=== PATIENT | male | born 1945 | race Caucasian/White ===

== ENCOUNTER → 2023-08-30 07:39 | Outpatient (REF) | payer MEDICARE, OTHER, SELFPAY | LOC: RAD 07:39 | PROVIDERS: ATTENDING PHYSICIAN Nurse Practitioner Family; FAMILY PHYSICIAN Family Medicine | DX: R06.02 Shortness of breath (principal); Z86.711 Personal history of pulmonary embolism | CPT/HCPCS: 71275; Q9967 ==

== ENCOUNTER → 2023-10-12 09:59 | Outpatient (REF) | payer MEDICARE, OTHER, SELFPAY | LOC: RCS 09:59 | PROVIDERS: ATTENDING PHYSICIAN Internal Medicine Cardiovascular Disease; FAMILY PHYSICIAN Family Medicine | DX: I50.33 Acute on chronic diastolic (congestive) heart failure (principal) | CPT/HCPCS: 93306 ==

== ENCOUNTER → 2023-10-25 07:09 | Outpatient (REF) | payer MEDICARE, OTHER, SELFPAY | LOC: RAD 07:09 | PROVIDERS: ATTENDING PHYSICIAN Nurse Practitioner Family; FAMILY PHYSICIAN Family Medicine | DX: R59.1 Generalized enlarged lymph nodes (principal) | CPT/HCPCS: 71260; Q9967 ==

== ENCOUNTER 2023-11-03 08:38 | Day surgery (SDC) | payer MEDICARE, OTHER, SELFPAY ==
[2023-11-03] VITALS (8 sets, daily range): BP systolic 113–149; BP diastolic 63–91
--- NOTE | 2023-11-03 07:51 | ITS.CL.CATH ---
Vendor Specialist - Catheterization
Cardiac Catheterization
Procedure Report:
LEFT AND RIGHT HEART CATHETERIZATION
Date of Procedure: November 03, 2023
Referring: George Pretty
PROCEDURES:
1. Left catheterization, coronary angiogram.
2. Right heart catheterization.
3. Ultrasound-guided access
INDICATION: Patient is a 78-year-old gentleman with past medical history of hypertension, hyperlipidemia, type 2 diabetes mellitus, obstructive sleep apnea, heart failure with preserved ejection fraction, prior DVT/PE on Xarelto, PVCs with
progressive dyspnea and most recent echocardiogram with LVEF down to 40% associated with some inferolateral hypokinesis who is now being referred for a left and right heart catheterization to rule out obstructive CAD and assess invasive hemodynamics.
ACCESS:
1. Right radial artery, 6 Syrian sheath, under ultrasound guidance.
2. Right brachial vein, 6 Syrian sheath
HEMODYNAMICS : (mmHg)
RA (m) : 12
RV (s/d,m) : 37/7, 12
PA (s/d, m) : 35/19, 26
PCWP (m) : 20
PA saturation: 68.0% on room air
AO saturation: 93.7% on room air
RA saturation: 68.2% on room air
Cardiac Output : 6.13 L/min
Cardiac Index : 2.9 L/min/m-2
Systemic vascular resistance: 1095 dsc^(-5)
Pulmonary vascular resistance: 1.63 berger unit
Heart rate: 68 bpm
AO (s/d) : 137/64
LV (s/d) : 130/9
LVEDP : 18
CORONARY FINDINGS
DOMINANCE: Right
LEFT MAIN: The left main artery is a large-caliber vessel which gives rise to the left anterior descending artery and the left circumflex artery. There is minimal luminal irregularities.
LEFT ANTERIOR DESCENDING: The left anterior descending artery is a medium to large caliber vessel which gives rise to 1 major diagonal branch as it courses through the anterior interventricular groove towards the apex. There is minimal luminal
irregularities.
CIRCUMFLEX: The left circumflex artery is a medium caliber vessel with multiple small caliber obtuse marginal branches and 2 small to medium caliber left posterolateral branches. There is minimal luminal irregularities.
RIGHT CORONARY ARTERY: The right coronary artery is a large-caliber, dominant vessel which gives rise to the right posterior descending artery and the right posterolateral system. There is minimal luminal irregularities.
SEDATION: 43 minutes of procedural sedation was utilized. An independent emergency medical dispatcher was present to assist with and help manage the patient's level of consciousness and physiologic status.
RADIATION SUMMARY: Fluoro Time (min): 5.6, Dose (mGy): 410.6, DAP (Gy.cm2) : 30.9
Closure Device:
1. Vascular band over right radial artery, 10 cc of air.
2. Manual pressure was held over the right brachial venous access site with successful hemostasis.
CONCLUSIONS
1. No obstructive coronary artery disease.
2. Elevated right and left-sided filling pressures with normal cardiac output.
RECOMMENDATIONS
1. Goal-directed medical therapy for nonischemic cardiomyopathy.
2. Wean radial band per protocol.
3. Aggressive management of cardiovascular risk factors.
4. Reassessment of LVEF by echo in 3 months.
5. Referral for outpatient cardiac rehab
Copy to: George Pretty
Cassandra Garland MD, FAC, [facility]
[2023-11-03 09:24] LABS: Hematocrit 35.6 % (39.0-52.0); Mean Corp Hgb Conc. 33.7 g/dL (33.0-37.0); Mean Corpuscular Hgb 30.1 pg (27.0-31.0); Mean Corpuscular Volume 89.2 fL (80.0-94.0); Mean Platelet Volume 10.1 fL (7.4-10.4); Platelet Count 184 10^3/uL (130-400); Red Blood Cell Count 3.99 10^6/uL (4.70-6.10); Red Cell Dist. Width 13.7 % (11.5-14.5); White Blood Cell Count 8.5 10^3/uL (4.8-10.8)
[2023-11-03 09:33] LABS: Blood Urea Nitrogen 22 mg/dl (9-20); Calcium 9.6 mg/dl (8.4-10.2); Carbon Dioxide 27 mmol/L (22-30); Chloride 107 mmol/L (98-107); Glucose 120 mg/dl (70-99); Potassium 4.4 mmol/L (3.5-5.1); Sodium 140 mmol/L (135-145); eGFR > 60.00
[2023-11-03 09:50] LABS: Glucose - Point of Care 113 mg/dl (70-99)
--- NOTE | 2023-11-03 14:00 | CM ---
Priced Jardiance + Farxiga thru patient's insurance plan- [phone].
Jardiance: 150.43/ 30 d supply
Farxiga: 143.33/ 30 d supply
[2023-11-03] MEDS: LASIX 40 MG IV (14:41)
== END 2023-11-03 17:00 | disposition home or self-care (01) ==
LOC: CATH 08:38
PROVIDERS: ATTENDING PHYSICIAN Internal Medicine Interventional Cardiology; FAMILY PHYSICIAN Family Medicine; OTHER PHYSICIAN Internal Medicine Cardiovascular Disease
DX: I50.32 Chronic diastolic (congestive) heart failure (principal); I11.0 Hypertensive heart disease with heart failure; I42.8 Other cardiomyopathies; Z79.01 Long term (current) use of anticoagulants; Z86.711 Personal history of pulmonary embolism; Z86.718 Personal history of other venous thrombosis and embolism; G47.33 Obstructive sleep apnea (adult) (pediatric); E11.9 Type 2 diabetes mellitus without complications; E78.5 Hyperlipidemia, unspecified
CPT/HCPCS: 99152; 99153; 80048; 82962; 85027; 93460; C1894; Q9967

== ENCOUNTER → 2024-03-13 09:23 | Outpatient (REF) | payer MEDICARE, OTHER, SELFPAY | LOC: RCS 09:23 | PROVIDERS: ATTENDING PHYSICIAN Physician Assistant Medical; FAMILY PHYSICIAN Family Medicine | DX: R06.09 Other forms of dyspnea (principal) | CPT/HCPCS: 93306 ==

== ENCOUNTER → 2024-04-12 07:32 | Outpatient (REF) | payer MEDICARE, OTHER, SELFPAY | LOC: RAD 07:32 | PROVIDERS: ATTENDING PHYSICIAN Internal Medicine Critical Care Medicine; FAMILY PHYSICIAN Family Medicine | DX: R93.89 Abnormal findings on diagnostic imaging of other specified body structures (principal) | CPT/HCPCS: 71260; Q9967 ==

== ENCOUNTER 2024-06-28 18:40 | Inpatient (IN) | payer MEDICARE, OTHER, SELFPAY ==
[2024-06-27] VITALS (9 sets, daily range): BP systolic 125–168; BP diastolic 64–88; PULSE 64; BMI 40.7; BMI 40.6
--- NOTE | 2024-06-27 10:57 | ED.GENMED ---
ED Provider Triage
<Andrea Escalera PA-C - Last Filed: 06/27/24 11:02>
-
Patient seen by provider in Triage?: Seen in Triage
Attestation: A medical screening examination has been initiated by a qualified medical provider. Based on the assessment performed at this time, it has been determined that an emergent medical condition may exist and the patient has been informed
that further medical evaluation and possible additional diagnostic testing may be needed.
HPI: 79-year-old male presents to the emergency department for evaluation of shortness of breath for the past 3 to 4 days. Reports chest pressure but denies any chest pain. No fevers chills or upper respiratory tract symptoms. No coughing but
does feel as though he has mucus in his chest. No leg swelling. Noted to have increased dyspnea and work of breathing with exertion however no hypoxia, sats remained at 95% during triage
GENERAL: Alert , in no apparent distress
EYE: No visual abnormalities.
NECK: Trachea midline
ENT: No visible abnormalities.
LUNGS: No acute respiratory distress
NEUROLOGICAL: Alert and oriented
SKIN: Skin intact. No visible changes.
MUSCULOSKELETAL: Moving extremities normally
PSYCH: Normal and appropriate interaction.
This is a medical evaluation conducted in person to initiate diagnostic evaluation and provide initial therapeutics. Please see further documentation by the treating clinician.
History of Present Illness
<Andrea Escalera PA-C - Last Filed: 06/27/24 11:02>
General
Chief Complaint: Breathing Problem
Time Seen by Provider: 06/27/24 13:00
<Lala Allred PA-C - Last Filed: 06/27/24 17:57>
General
Source: patient
Exam Limitations: none
History of Present Illness
History of Present Illness:
79yoM with a history of atrial fibrillation, CHF with last EF of 40%, pulmonary embolism on Xarelto, JASEN on CPAP, hypertension, and hyperlipidemia presenting for evaluation of shortness of breath. Patient reports feeling short of breath for the past
3-4 days. Symptoms worsen with activity. He is also feeling fatigued with some phlegm in his chest. He feels like he stops breathing in the middle on the night. His CPAP machine keeps track of breathing events while in use. He typically only has
1/night but he had 3 last night. His symptoms feel similar to when he was diagnosed with CHF and a PE in the past. He denies any chest pain, leg swelling, weight gain. He currently takes 40mg Lasix BID.
Past History
<Andrea Escalera PA-C - Last Filed: 06/27/24 11:02>
Past History
ED Past Medical History: HTN, Hypercholesterolemia and Other (sleep apnea)
ED Past Surgical History: Orthopedic (Bilateral knee replacement)
Social History
Tobacco: Non-smoker
Alcohol: None
Drug: None
Living: with family
Phy Exam
<Lala Allred PA-C - Last Filed: 06/27/24 17:57>
General Physical Exam
General Presentation: well appearing
General age: appears stated age
General Skin: warm and dry
General Habitus: normal and elderly
General Mental: alert
ENT Exam
ENT Exam: normocephalic
Cardiovascular Exam
Cardiovascular Exam: regular rate/rhythm, no edema and no murmur
Pulmonary Exam
Pulmonary Exam: lungs clear, no crackles, no rhonchi, no wheezing and other (Mild conversational dyspnea noted)
[place] Coma Scale
Eye Opening: Spontaneous
Verbal Response: Oriented
Motor Response: Obeys Commands
GCS Total Score: 15
Skin Exam
Skin Exam: normal color and warm/dry
Psychiatric Exam
Psychiatric Exam: normal mood/affect
Scores
<Lala Allred PA-C - Last Filed: 06/27/24 17:57>
Heart Failure Risk
Heart Failure Risk Score: Not Applicable
Course
<Andrea Escalera PA-C - Last Filed: 06/27/24 11:02>
Orders/Labs/Results
Orders:
Orders
06/27/24 11:01
Electrocardiogram (*1) Urgent
Reason for Study: Shortness of Breath
EKG- Treatment ONCE
06/27/24 11:03
CR Chest - 2 Views Urgent
Comment:
Reason For Exam: sob
06/27/24 11:20
Complete Blood Count/With Diff Urgent
Comprehensive Metabolic Panel Urgent
NT-proBNP Urgent
Troponin I Urgent
06/27/24 13:[address] Non Medication Order As Directed
Physician Order: ambulatory pulse ox
Above order entered?: Yes
06/27/24 13:32
COVID-19 Antigen Urgent
Source: Nasal Swab
D-Dimer Urgent
Influenza A+B Rapid Molecular Urgent
SHANTE Source: Nasal Swab
Specimen Description:
06/27/24 15:22
Furosemide [Lasix] 40 mg IV NOW STA
Abnormal Lab Results
06/27/24 06/27/24
11:20 13:32
RBC 4.27 L 10^6/uL
(4.70-6.10)
Abs Immat Gran (auto) 0.1 H 10^3/uL
(0-0.05)
Absolute Monos (auto) 1.1 H 10^3/uL
(0.1-0.6)
Immature Gran % 0.6 H %
(0-0.5)
Monocytes % 13.4 H %
(1.7-9.3)
D-Dimer 0.72 H ug/mlFEU
(0.00-0.50)
BUN 31 H mg/dl
(9-20)
Glucose 125 H mg/dl
(70-99)
06/27/24 11:20
06/27/24 11:20
Vital Signs
Initial and Last Documented VS:
Initial Vital Signs
Temp Pulse Resp BP Pulse Ox
97.9 F 79 22 165/82 97
06/27/24 10:57 06/27/24 10:57 06/27/24 10:57 06/27/24 10:57 06/27/24 10:57
Last Documented Vital Signs
Temp Pulse Resp BP Pulse Ox
97.7 F 67 25 157/78 99
06/27/24 12:34 06/27/24 16:28 06/27/24 16:28 06/27/24 16:26 06/27/24 16:28
Albinalt;Lala Allred PA-C - Last Filed: 06/27/24 17:57>
Orders/Labs/Results
Orders:
Orders
06/27/24 11:01
Electrocardiogram (*1) Urgent
Reason for Study: Shortness of Breath
EKG- Treatment ONCE
06/27/24 11:03
CR Chest - 2 Views Urgent
Comment:
Reason For Exam: sob
06/27/24 11:20
Complete Blood Count/With Diff Urgent
Comprehensive Metabolic Panel Urgent
NT-proBNP Urgent
Troponin I Urgent
06/27/24 13:[address] Non Medication Order As Directed
Physician Order: ambulatory pulse ox
Above order entered?: Yes
06/27/24 13:32
COVID-19 Antigen Urgent
Source: Nasal Swab
D-Dimer Urgent
Influenza A+B Rapid Molecular Urgent
SHANTE Source: Nasal Swab
Specimen Description:
06/27/24 15:22
Furosemide [Lasix] 40 mg IV NOW STA
Abnormal Lab Results
06/27/24 06/27/24
11:20 13:32
RBC 4.27 L 10^6/uL
(4.70-6.10)
Abs Immat Gran (auto) 0.1 H 10^3/uL
(0-0.05)
Absolute Monos (auto) 1.1 H 10^3/uL
(0.1-0.6)
Immature Gran % 0.6 H %
(0-0.5)
Monocytes % 13.4 H %
(1.7-9.3)
D-Dimer 0.72 H ug/mlFEU
(0.00-0.50)
BUN 31 H mg/dl
(9-20)
Glucose 125 H mg/dl
(70-99)
06/27/24 11:20
06/27/24 11:20
Vital Signs
Initial and Last Documented VS:
Initial Vital Signs
Temp Pulse Resp BP Pulse Ox
97.9 F 79 22 165/82 97
06/27/24 10:57 06/27/24 10:57 06/27/24 10:57 06/27/24 10:57 06/27/24 10:57
Last Documented Vital Signs
Temp Pulse Resp BP Pulse Ox
97.7 F 67 25 157/78 99
06/27/24 12:34 06/27/24 16:28 06/27/24 16:28 06/27/24 16:26 06/27/24 16:28
Albinalt;Lala Allred PA-C - Last Filed: 06/27/24 17:57>
MDM/Problems Addressed
Differential Diagnosis Includes:
79yoM here with SOB and fatigued x several days. Symptoms worse with exertion. Hx of CHF and PE. He is hypertensive in triage with otherwise stable vitals. Mild conversational dyspnea noted on exam. Differential diagnosis includes but is not limited
to: CHF exacerbation, ACS, pneumonia, less likely PE as patient is anticoagulated
Initial ED plan: Cardiac labs, EKG, and CXR obtained in triage. EKG shows NSR without ischemic changes and troponin WNL. BNP 1350. CXR shows mildly prominent interstitial markings. Will check viral testing and add on D-dimer. Will check ambulatory
pulse ox.
<Lala Allred PA-C - Last Filed: 06/27/24 17:57>
*EKG
Interpreted by ED Provider?: Yes
EKG Intrepretation Date: 06/27/24
Heart Rate: 63
Rate: normal
Rhythm: sinus
[place]: normal axis
Interval: first degree heart block
QRS Pattern: normal QRS
Ischemia: no ischemia
*Critical Care Note
Total Time (30-74mins, 75-104mins- exclusive of procedures): Not Applicable
<Lala Allred PA-C - Last Filed: 06/27/24 17:57>
Update Note
Update Note:
Viral testing negative. D-dimer 0.72 which corrects for age. Nursing staff ambulated patient and he desaturated to 85%. No hypoxia noted at rest. 40mg IV Lasix ordered and patient admitted for further management.
ED Attending Note
<Andrea Escalera PA-C - Last Filed: 06/27/24 11:02>
-
Portions of this chart may have been created with voice recognition software.� Occasional wrong word or��sound alike� substitutions may have occurred due to the inherent limitations of voice recognition software.
Discharge Plan
Departure
Patient Disposition: Admit
Date of Disposition: 06/27/24
Time of Disposition: 15:26
Presentation/result/management discussed w/ accepting MD/DO: Hospitalist
Discharge Problem:
Exertional dyspnea
Prescriptions:
No Action
bupropion HCl 150 MG tablet sustained-release 12 hr
150 mg PO BID
docusate sodium 100 MG capsule
100 mg PO BID
doxazosin 4 MG tablet
4 mg PO HS
metoprolol succinate 25 MG tablet extended release 24 hr
25 mg PO HS
multivitamin with folic acid [Tab-A-Artie] 1 TABLET tablet
1 tab PO DAILY
vitamin E (dl, acetate) 400 UNITS capsule
400 units PO DAILY
cyanocobalamin (vitamin B-12) [Vitamin B-12] 1,000 mcg Tablet
1,000 mcg PO DAILY
lisinopril 40 mg tablet
40 mg PO HS
ezetimibe-simvastatin 10-10 mg tablet
1 tab PO HS
magnesium oxide 500 mg Capsule
250 mg PO HS
omega 7-[id number]-trv-fish oil [Fish Oil] 1,000 mg (120 mg-180 mg) Capsule
1 cap PO BID
Xarelto 10 mg tablet
10 mg PO DAILY
diclofenac sodium 100 mg Tablet Extended Release 24 Hr
100 mg PO DAILY
Anoro Ellipta 62.5-25 mcg/actuation Blister With Device
1 inh INHALATION R DAILY
furosemide [Lasix] 40 mg tablet
40 mg PO BID Qty: 180 3RF
dapagliflozin propanediol [Farxiga] 10 mg tablet
10 mg PO DAILY Qty: 90 3RF
spironolactone 25 mg tablet
25 mg PO DAILY Qty: 90 3RF
azelastine 137 mcg (0.1 %) [place],Non-Aerosol
1 spray INTRANASAL BIDPRN PRN (Reason: congestion)
cholecalciferol (vitamin D3) 25 mcg (1,000 unit) Tablet
25 mcg PO DAILY
Glucosamine Chondroitin 550-30-1 mg Capsule
1 cap PO BID
Referrals:
Gigi Donahue MD [Family Provider] -
Interventions
Interventions:
*Risk Screen - Suicide Last Done: 06/27/24 10:57
*General Assessment Last Done: 06/27/24 10:57
*Neglect/Abuse Screening Last Done: 06/27/24 10:57
*ED COVID-19 Vaccine History Last Done: 06/27/24 12:57
ED- Cardiac Assessment Last Done: 06/27/24 12:57
ED- Pulmonary Assessment Last Done: 06/27/24 12:57
Discharge Date and Time
Print Language: SURINAMESE
[2024-06-27 11:37] LABS: % Basophils 0.4 % (0-2); % Immature Granulocytes 0.6 % (0-0.5); % Lymphocytes 22.9 % (20.5-51.1); % Monocytes 13.4 % (1.7-9.3); % Neutrophils 59.7 % (42.2-75.2); Absolute Eosinophils 0.2 10^3/uL (0-0.7); Absolute Immature Granulocytes 0.1 10^3/uL (0-0.05); Absolute Lymphocytes 1.8 10^3/uL (1.2-3.4); Absolute Monocytes 1.1 10^3/uL (0.1-0.6); Absolute Neutrophils 4.8 10^3/uL (1.4-6.5); Hematocrit 39.7 % (39.0-52.0); Hemoglobin 13.1 g/dL (13.0-18.0); Mean Corpuscular Hgb 30.7 pg (27.0-31.0); Mean Platelet Volume 10.1 fL (7.4-10.4); Nucleated Red Blood Cells % 0 % (-); Platelet Count 203 10^3/uL (130-400); Red Blood Cell Count 4.27 10^6/uL (4.70-6.10); Red Cell Dist. Width 14.2 % (11.5-14.5); White Blood Cell Count 8.1 10^3/uL (4.8-10.8)
[2024-06-27 11:54] LABS: ALT (SGPT) 30 U/L (0-50); AST (SGOT) 28 U/L (17-59); Albumin 4.4 g/dl (3.5-5.0); Alkaline Phosphatase 83 U/L (38-126); Blood Urea Nitrogen 31 mg/dl (9-20); Calcium 9.3 mg/dl (8.4-10.2); Carbon Dioxide 28 mmol/L (22-30); Chloride 104 mmol/L (98-107); Glucose 125 mg/dl (70-99); Potassium 4.7 mmol/L (3.5-5.1); Sodium 142 mmol/L (135-145); Total Bilirubin 0.6 mg/dl (0.2-1.3); Total Protein 7.7 g/dl (6.3-8.2); eGFR > 60.00
[2024-06-27 12:02] LABS: NT-proBNP 1350 pg/ml; Troponin I < 0.012 ng/ml
[2024-06-27 14:04] LABS: D-Dimer 0.72 ug/mlFEU (0.00-0.50)
[2024-06-27 14:05] LABS: COVID-19 Antigen Negative (Negative)
[2024-06-27] MEDS: LASIX 40 MG IV ×2 (15:44→22:39)
--- NOTE | 2024-06-27 17:38 | HPS.HSE ---
Family Physician
-
Family Physician: Gigi Donahue
Chief Complaint
-
SOB
History of Present Illness
The patient is an 79 yo male with PMH significant for atrial fibrillation, CHF with last EF of 40%, pulmonary embolism on Xarelto, JASEN on CPAP, hypertension, and hyperlipidemia, who presents to the ED due to SOB for 3-4 days, associated with chest
pressure and COOMBS, along with sensation of mucous in his chest. He mentions eating salty food (mosotho fries) Wednesday, but symptoms started Wednesday. He denies weight gain, has been working on weight loss, he denies increased edema. He denies fevers, no
chills, no URI symptoms. Oxygen 95 % in triage. D-Dimer 0.72, BNP 1350, O2 85% on ambulation in ED.
ED txt: IV Lasix 40 mg
Medical History
Past Medical History
Past Medical History: Reports Other (hypertension, hyperlipidemia, sleep apnea, prediabetes, PE)
Past Surgical History: Reports Orthopedic (b/l knee replacement)
Social History
Tobacco: Non-smoker
Alcohol: None
Drug: None
Living: With Family
Family History
Family History: Not pertinent
Allergies / Home Medications
Allergies reflects when Allergies were last updated in [place].
Home Medications with original date entered in [place]
Allergy/Medication List:
Allergies
Allergy/AdvReac Type Severity Reaction Status Date / Time
aspirin Allergy Swelling Verified 06/27/24 11:02
Home Medications
bupropion HCl 150 mg tablet,12 hr sustained-release 150 mg PO BID Depression 08/25/18
docusate sodium 100 mg capsule 100 mg PO BID Constipation 08/25/18
doxazosin 4 mg tablet 4 mg PO HS Urinary issue 08/25/18
metoprolol succinate 25 mg tablet,extended release 24 hr 25 mg PO HS Blood pressure 08/25/18
multivitamin with folic acid 400 mcg tablet (Tab-A-Artie) 1 tab PO DAILY Supplement 08/25/18
vitamin E (dl, acetate) 180 mg (400 unit) capsule 400 units PO DAILY Supplement 08/25/18
cyanocobalamin (vitamin B-12) 1,000 mcg tablet (Vitamin B-12) 1,000 mcg PO DAILY Supplement 07/24/22
ezetimibe 10 mg-simvastatin 10 mg tablet 1 tab PO HS High cholesterol 07/24/22
lisinopril 40 mg tablet 40 mg PO HS Blood pressure 07/24/22
magnesium oxide 500 mg capsule 250 mg PO HS Supplement 07/24/22
omega 5-gtb-ybr-fish oil 1,000 mg (120 mg-180 mg) capsule (Fish Oil) 1 cap PO BID Supplement 07/24/22
rivaroxaban 10 mg tablet (Xarelto) 10 mg PO DAILY Blood clot prevention/tx 07/24/22
dapagliflozin propanediol 10 mg tablet (Farxiga) 10 mg PO DAILY #90 tabs 11/03/23
diclofenac sodium 100 mg tablet,extended release 24 hr 100 mg PO DAILY 11/03/23
furosemide 40 mg tablet (Lasix) 40 mg PO BID #180 tabs 11/03/23
spironolactone 25 mg tablet 25 mg PO DAILY #90 tabs 11/03/23
umeclidinium 62.5 mcg-vilanterol 25 mcg/actuation powdr for inhalation (Anoro Ellipta) 1 inh inhalation R DAILY 11/03/23
azelastine 137 mcg (0.1 %) nasal spray 1 spray intranasal BIDPRN PRN congestion 06/27/24
cholecalciferol (vitamin D3) 25 mcg (1,000 unit) tablet 25 mcg PO DAILY 06/27/24
glucosamine sulf dipot chlr,msm,chond 550 mg-C 30 mg-michelle 1 mg capsule (Glucosamine Chondroitin) 1 cap PO BID 06/27/24
Review of Systems
-
A 12 point ROS was completed and negative except as noted: Yes
Physical Exam
Vital Signs
Vital Signs
Temp Pulse Resp BP Pulse Ox
97.7 F 67 25 157/78 99
06/27/24 12:34 06/27/24 16:28 06/27/24 16:28 06/27/24 16:26 06/27/24 16:28
Physical Exam
General: Well Developed, Well Nourished and No Apparent Distress
HEENT: NormoCephalic, Anicteric and Moist mucous membranes
Respiratory: Other (RLL crackles)
Cardiac: S1/S2, Carotid Pulses and Other (distant heart sounds, + JVD)
GI: Soft and Non Tender
Musculoskeletal: No Clubbing, No Cyanosis and No Edema
Skin: Warm and Dry
Neuro: AO x 3 and No Motor Deficits
Psych: Calm
Laboratory Results
-
06/27/24 11:20
06/27/24 11:20
Laboratory Results
Total Bilirubin 0.6 mg/dl (0.2-1.3) 06/27/24 11:20
AST 28 U/L (17-59) 06/27/24 11:20
ALT 30 U/L (0-50) 06/27/24 11:20
Alkaline Phosphatase 83 U/L (38-126) 06/27/24 11:20
Troponin I < 0.012 ng/ml 06/27/24 11:20
Data Reviewed
-
Old Records: Reviewed (Cardiac cath 11/03/23 - )
Impression/Plan
-
ECHO 03/13/24
IMPRESSION: CONCLUSIONS
1. Left ventricle: Normal size. Mildly reduced systolic function with global
hypokinesis and an estimated ejection fraction of 42%. Normal diastolic
function.
2. Right ventricle: Normal
3. Atria: Normal
4. Mitral valve: Mild mitral regurgitation
5. Aortic valve: Trileaflet. No aortic stenosis or aortic insufficiency
6. Tricuspid valve: Trace tricuspid regurgitation with estimated pulmonary
artery systolic pressures of 26 mmHg
7. In comparison to the most recent echocardiogram from 10/12/2023, there has
been no significant change
The patient is an 79 yo male with PMH significant for atrial fibrillation, CHF with last EF of 40%, pulmonary embolism on Xarelto, JASEN on CPAP, hypertension, and hyperlipidemia, who presents to the ED due to SOB for 3-4 days, associated with chest
pressure and COOMBS, along with sensation of mucous in his chest. He mentions eating salty food (mosotho fries) Wednesday, but symptoms started Wednesday. He denies weight gain, has been working on weight loss, he denies increased edema. He denies fevers, no
chills, no URI symptoms. Oxygen 95 % in triage. D-Dimer 0.72, BNP 1350
ED txt: IV Lasix 40 mg
#Acute exacerbation of systolic heart failure with reduced EF, hypoxia with ambulation at 85% , 96% RA at rest
-Tele monitoring
-Cards Cx
-IV Lasix BID
-hold on repeat echo pending Cards eval
-pulse oximetry/monitoring
# Essential hypertension
-cont home meds
# Hyperlipidemia
-home meds
# JASEN
-CPAP at 15 nightly, contniue and monitor oxygen saturation
#Pre-diabetes
-Monitor glucose
#PE
DVT proph-Xarelto
Full Code
--- NOTE | 2024-06-27 20:00 | PTCARENOTE ---
Pt received from ED at 1945. Pt pleasant, AAOX3, VSS, and able to ambulate into room with assistance. Pt presents with slight SOB when ambulating. Pt does not complain of any pain at this time. Pt receptive to room and call [facility]. Pt bed in lowest
position and call [facility] within reach. Pt educated on importance of call [facility] usage, pt relays understanding and cooperation. Will continue with current plan of care.
[2024-06-27 20:51] LABS: Magnesium 2.6 mg/dl (1.6-2.3)
[2024-06-27 21:19] LABS: TSH 1.05 uIU/ml (0.47-4.68)
[2024-06-27 21:45] LABS: Troponin I < 0.012 ng/ml
[2024-06-27] MEDS: ZESTRIL 40 MG PO (22:35)
[2024-06-27] MEDS: TOPROL XL 25 MG PO (22:35)
[2024-06-27] MEDS: MAG-TAB SR 84 MG PO (22:35)
[2024-06-27] MEDS: ZETIA 10 MG PO (22:35)
[2024-06-27] MEDS: WELLBUTRIN SR (12 hour sustained release) 150 MG PO (22:36)
[2024-06-27] MEDS: COLACE 100 MG PO (22:36)
[2024-06-27] MEDS: CARDURA 4 MG PO (22:36)
[2024-06-27] MEDS: LIPITOR 10 MG PO (22:40)
[2024-06-28 02:40] LABS: Troponin I < 0.012 ng/ml
[2024-06-28] MEDS: BENADRYL ELIXIR 12.5 MG PO (02:53)
[2024-06-28 03:22] VITALS: BP 138/65
[2024-06-28 04:30] LABS: Hematocrit 37.8 % (39.0-52.0); Hemoglobin 12.6 g/dL (13.0-18.0); Mean Corp Hgb Conc. 33.3 g/dL (33.0-37.0); Mean Corpuscular Hgb 30.6 pg (27.0-31.0); Mean Corpuscular Volume 91.7 fL (80.0-94.0); Mean Platelet Volume 9.5 fL (7.4-10.4); Platelet Count 194 10^3/uL (130-400); Red Blood Cell Count 4.12 10^6/uL (4.70-6.10); Red Cell Dist. Width 14.1 % (11.5-14.5); White Blood Cell Count 8.9 10^3/uL (4.8-10.8)
[2024-06-28 04:59] LABS: Blood Urea Nitrogen 31 mg/dl (9-20); Calcium 8.9 mg/dl (8.4-10.2); Carbon Dioxide 27 mmol/L (22-30); Chloride 103 mmol/L (98-107); Estimated Creatinine Clearance 68 ml/min; Glucose 127 mg/dl (70-99); HDL Cholesterol 28 mg/dl; LDL Cholesterol, Calculated 37 mg/dl; Magnesium 2.4 mg/dl (1.6-2.3); Potassium 3.9 mmol/L (3.5-5.1); Sodium 137 mmol/L (135-145); Total Cholesterol 111 mg/dl (50-199); Triglyceride 233 mg/dl (10-149); Very Low Density Lipoprotein 46 mg/dl (0-30); eGFR > 60.00
[2024-06-28 06:00] VITALS: BMI 40.1
[2024-06-28] MEDS: STRIVERDI RESPIMAT 2 PUFF INH (07:29)
[2024-06-28] MEDS: SPIRIVA RESPIMAT 2.5 MCG 2 PUFF INH (07:29)
[2024-06-28 07:30] VITALS: BP 168/67
[2024-06-28 08:55] LABS: Troponin I < 0.012 ng/ml
[2024-06-28] MEDS: WELLBUTRIN SR (12 hour sustained release) 150 MG PO ×2 (09:19→20:56)
[2024-06-28] MEDS: FARXIGA 10 MG PO (09:20)
[2024-06-28] MEDS: ALDACTONE 25 MG PO (09:20)
[2024-06-28] MEDS: COLACE 100 MG PO ×2 (09:21→20:54)
[2024-06-28] MEDS: VITAMIN B-12 1000 MCG PO (09:21)
[2024-06-28] MEDS: XARELTO 10 MG PO (09:21)
[2024-06-28] MEDS: VITAMIN D3 (cholecalciferol) 25 MCG PO (09:22)
[2024-06-28] MEDS: LASIX 40 MG IV ×2 (09:23→15:39)
[2024-06-28] MEDS: VOLTAREN 100 MG PO (11:33)
[2024-06-28 11:42] VITALS: BP 165/90
--- NOTE | 2024-06-28 12:22 | CON.CAR ---
Addendum entered and electronically signed by Godwin Pretty MD 06/28/24 14:46:
I saw and examined the patient.
The Studio Data Analyst's note was reviewed and I agree with the note.
Comment:
GEN: No distress, awake, Ox3
HEENT: supple, anicteric, mmm
LUNGS: scatt rhonchi
CV: Reg, S1/S2, 05/29 syst LSB, S3+
ABD: soft, BS+, NT/ND
EXT: No edema
NEURO: Gross non-focal
SKIN: No rash
Plan:
He is well-known to me with a past medical history of chronic heart failure with mildly reduced ejection fraction, hypertension, obesity, sleep apnea, diabetes and DVT/PE. He presents with progressive dyspnea on exertion, weight gain, and shortness
of breath. He admits to missing a few doses of his diuretic and eating out with a salty meal recently. He denies any chest pains.
Check repeat echocardiogram to evaluate his LVEF.
Start Lasix 40 mg IV twice daily and diurese.
Follow his blood pressure and creatinine.
CHF education.
Continue Toprol, lisinopril, spironolactone, and Farxiga.
Cath from 2023 had no significant CAD. Cont Xarelto for hx of DVT/PE
Original Note:
Consultation
Consultation Request
Date/Time Consultation Performed: 06/28/24
Requesting Provider: Dr. Acharya
Performing Provider: Génesis Luque PA-C for Dr. Pretty
Reason for Consultation: CHF
Medical History
-
Chief Complaint: SOB
History of Present Illness:
Patient is an 79 yo M with PMH chronic heart failure with midrange EF, nonischemic cardiomyopathy with EF 40% by echo 02/2024 and nonobstructive coronary disease by cath 10/2023 who presents to [facility] due to progressive dyspnea on
exertion over the last 4 days. He reports he has been compliant with his Lasix as an outpatient, however office notes suggest he should be on p.o. Lasix 40 mg twice daily, however he states he has been taking 20 mg twice daily. He also reports he
occasionally skips doses of his Lasix, and did go out to lunch with his son this past Wednesday and may have been noncompliant with low-sodium diet. He denies significant weight gain, lower extremity edema, abdominal bloating, or orthopnea. Reports
his dry weight at home has been approximately 240 pounds. proBNP 1300. O2 sat dropped into 80s with ambulation while in ED. Cardiology consulted for evaluation
PMH:
Chronic HFmrEF
NICM, EF 40% by echo 02/2024
HTN
HLD
PVCs
History of DVT/PE 2021, on maintenance xarelto
DM2
JASEN
COPD
Past Medical History
Past Medical History: Other (in HPI)
Social History
Tobacco: Former Smoker
Personal:
Employment: Retired
Family History
Family History: Diabetes and Hypertension
Allergies / Home Medications
Allergy/AdvReac Type Severity Reaction Status Date / Time
aspirin Allergy Swelling Verified 06/27/24 11:02
�Medication �Instructions �Recorded �Confirmed �Type
bupropion HCl 150 mg tablet,12 hr 150 mg PO BID Depression 08/25/18 06/27/24 History
sustained-release
docusate sodium 100 mg capsule 100 mg PO BID Constipation 08/25/18 06/27/24 History
doxazosin 4 mg tablet 4 mg PO HS Urinary issue 08/25/18 06/27/24 History
metoprolol succinate 25 mg 25 mg PO HS Blood pressure 08/25/18 06/27/24 History
tablet,extended release 24 hr
multivitamin with folic acid 400 1 tab PO DAILY Supplement 08/25/18 06/27/24 History
mcg tablet (Tab-A-Artie)
vitamin E (dl, acetate) 180 mg 400 units PO DAILY Supplement 08/25/18 06/27/24 History
(400 unit) capsule
cyanocobalamin (vitamin B-12) 1,000 mcg PO DAILY Supplement 07/24/22 06/27/24 History
1,000 mcg tablet (Vitamin B-12)
ezetimibe 10 mg-simvastatin 10 mg 1 tab PO HS High cholesterol 07/24/22 06/27/24 History
tablet
lisinopril 40 mg tablet 40 mg PO HS Blood pressure 07/24/22 06/27/24 History
magnesium oxide 500 mg capsule 250 mg PO HS Supplement 07/24/22 06/27/24 History
omega 8-evo-udy-fish oil 1,000 mg 1 cap PO BID Supplement 07/24/22 06/27/24 History
(120 mg-180 mg) capsule (Fish Oil)
rivaroxaban 10 mg tablet (Xarelto) 10 mg PO DAILY Blood clot 07/24/22 06/27/24 History
prevention/tx
dapagliflozin propanediol 10 mg 10 mg PO DAILY #90 tabs 11/03/23 06/27/24 Rx
tablet (Farxiga)
diclofenac sodium 100 mg 100 mg PO DAILY Anti-Inflammatory 11/03/23 06/27/24 History
tablet,extended release 24 hr
spironolactone 25 mg tablet 25 mg PO DAILY #90 tabs 11/03/23 06/27/24 Rx
umeclidinium 62.5 mcg-vilanterol 1 inh inhalation R DAILY 11/03/23 06/27/24 History
25 mcg/actuation powdr for Lung/Breathing Issues
inhalation (Anoro Ellipta)
azelastine 137 mcg (0.1 %) nasal 1 spray intranasal BIDPRN PRN 06/27/24 06/27/24 History
spray congestion
cholecalciferol (vitamin D3) 25 25 mcg PO DAILY Supplement 06/27/24 06/27/24 History
mcg (1,000 unit) tablet
glucosamine sulf dipot 1 cap PO BID Supplement 06/27/24 06/27/24 History
chlr,msm,chond 550 mg-C 30 mg-michelle
1 mg capsule (Glucosamine
Chondroitin)
furosemide 40 mg tablet (Lasix) 40 mg PO BID Fluid 06/28/24 06/27/24 History
Retention/Swelling
Review of Systems
-
History Source: Patient
All other systems: Negative unless noted
Physical Exam
Vital Signs
Temp Pulse Resp BP Pulse Ox
97.8 F 67 20 165/90 97
06/28/24 11:42 06/28/24 11:42 06/28/24 11:42 06/28/24 11:42 06/28/24 11:42
Lab Results
06/28/24 04:17
06/28/24 04:17
Troponin I < 0.012 ng/ml 06/28/24 08:00
Zxy-J-Ifkealqrmhp Pept 1350 pg/ml 06/27/24 11:20
Physical Exam
General: No Apparent Distress and Comfortable
HEENT: Normocephalic, Anicteric and Moist Mucous Membranes
Respiratory: Crackles (few at bases) and Non Labored Respirations
Cardiac: S1/S2 and Regular Rhythm
GI: Soft, Non Tender, Non Distended and Normal Bowel Sounds
Musculoskeletal: No Clubbing, No Cyanosis and Edema (trace of B/L LE)
Skin: Warm and Dry
Neuro: AO x 3
Impression / Plan
-
Primary Work Over Rig Operator: Dr. Pretty
Assessment:
Presentation with COOMBS x4 days
Acute on chronic HFmrEF
NICM, EF 40% by echo 02/2024
HTN
HLD
PVCs
History of DVT/PE 2021, on maintenance xarelto
DM2
JASEN
COPD
ECHO 03/13/2024: EF 42%, global hypokinesis, mild MR, trace TR, PAP 26 mmHg
Plan:
-Patient presents with progressive COOMBS for the last 4 days. proBNP 1350.
-responding well to IV diuresis, continue for next 24 hours. suspect can transition to po in AM - would place on 40mg po BID (was supposed to be on this dose, but he thinks he has been taking 20mg BID at home)
-await results of follow up echo study to reeval EF, most recently 40% by echo 02/2024 as above
-continue toprol, lisinopril, farxiga, spironolactone
-CHF education
-OP cardiac follow up arranged
Data Reviewed
-
EKG: Tracing Personally Visualized and interpreted
Radiology: Report Reviewed by me
Medical Tests (Nuc Med, Echo etc): Report Reviewed by me
Labs: Labs Reviewed by me
Old Records: Reviewed
--- NOTE | 2024-06-28 13:58 | CM ---
CM reviewed chart, patient seen bedside, initial assessment completed. [facility]. Patient reports his about three months ago. Patient has a cane for balance, [place] in past,
SNF in past through [facility]. Patient confirms PCP Gigi Donahue, [facility], confirms prescription coverage. Patient provided with [employer] form, refused to sign, placed in chart. CM will continue to follow for all discharge
planning needs.
Plan; return home, no needs likely.
--- NOTE | 2024-06-28 14:41 | W.PN.HOSP.TC ---
Today's Communication/Plan
-
Continue IV Lasix, possibly transition to oral tomorrow
Uptitrate GDMT as hemodynamics allow
Follow-up echocardiogram
Telemetry
Assessment / Plan
Assessment / Plan
#Acute on chronic HFmrEF
-History of dilated NICM; last echo with LVEF 42%, no RV systolic dysfunction, normal diastology
-Unclear etiology for his heart failure; LHC negative in the past, no features of restrictive disease
-Home medications include GDMT with beta-sabiha, ACEi, MRA, SGLT2i; on Lasix 40 mg twice daily
-Reportedly was eating more salt recently, taking Lasix only 20 mg twice daily
-Question stress-induced response as well, states he lost his within the last few months
-Has responded well to diuretics, minimally hypervolemic on exam this morning
-Warm and wet phenotype, on room air
Plan
-Continue IV Lasix 40 mg twice daily with plan to transition to oral tomorrow
-Follow-up repeat echocardiogram to assess LV function and diastology
-Continue GDMT, uptitrate as hemodynamics allow
-Monitor BMP, I's and O's, daily weight
-Continue on telemetry
#Paroxysmal AF
-Home medications include beta-sabiha and Xarelto
-No known history of ablation or other EP interventions
-Heart rate has been mostly WNL here, appears regular
#JASEN on CPAP
-Wears CPAP nightly at 15 mmHg inspiratory pressure
-No known history of pulmonary hypertension
-Continue CPAP and follow-up echo
#HTN
-No known history of hypertensive systemic disease
-Home medications include GDMT for heart failure and diuretics
-Blood pressure here elevated, on IV diuretics
-Uptitrate GDMT as hemodynamics allow
#Dyslipidemia
-No ASCVD history, left heart cath fairly recently was negative for obstructions
-Home medications include ezetimibe and simvastatin combination pill
#H/O pulmonary embolism on Xarelto
-Unclear nature, whether provoked or not
-No known history of underlying hypercoagulability
-No signs of active VTE as of now
DVT prophylaxis: Home Xarelto
Diet: Cholesterol-lowering, 2 g sodium restricted
CODE STATUS: Full code
Anticipated Discharge: 24 - 48 hours
Subjective/Interval History
-
Date of Service: June 28, 2024
Seen and examined at the bedside. No acute events reported overnight. AFVSS on room air this morning.
He does have desaturations of his oxygenation with ambulation. Reportedly was only taking Lasix at 20 mg twice daily rather than 40.
He denies any new complaints as of this morning. Denies chest pain, lightheadedness at time of my evaluation.
Objective Data
-
Labs:
Laboratory Results
06/28/24
04:17
WBC 8.9
Hgb 12.6 L
Hct 37.8 L
Plt Count 194
Sodium 137
Potassium 3.9
Chloride 103
Carbon Dioxide 27
BUN 31 H
Creatinine 1.0
Glucose 127 H
Calcium 8.9
Vital Signs:
Vital Signs
Temp Pulse Resp BP Pulse Ox
97.8 F 67 20 165/90 97
06/28/24 11:42 06/28/24 11:42 06/28/24 11:42 06/28/24 11:42 06/28/24 11:42
I&O
06/27/24 06/28/24 06/29/24
06:59 06:59 06:59
Intake Total 480 / 480
Output Total 600 / 600
Balance -120 / -120
Review of Systems
-
History Source: Patient
All other systems: Reviewed and negative
Physical Exam
-
General: Well Developed, No Apparent Distress and Morbidly Obese
HEENT: Normocephalic, Atraumatic, Moist Mucous Membranes and Anicteric
Respiratory: Rales and Non Labored Respirations; Negative Wheezes, Rhonchi or Accessory Resp Muscle Use
Cardiac: Regular Rhythm, S1/S2, JVD and Other (1+ malleolar edema); Negative Murmur, Rub or Gallop
GI: Soft, Nontender, Nondistended and Normal Bowel Sounds
Musculoskeletal: No Clubbing, No Cyanosis and Normal Gait & Station
Skin: Warm, Dry and Normal Turgor; Negative Rash
Neuro: AO x 3 and Nonfocal/Grossly Intact
Data Reviewed
-
Labs: Labs Reviewed by me and Discussed with Patient
[2024-06-28 16:51] VITALS: BP 165/93
[2024-06-28 19:41] VITALS: BP 120/65
[2024-06-28] MEDS: MAG-TAB SR 84 MG PO (21:02)
[2024-06-28] MEDS: ZESTRIL 40 MG PO (21:02)
[2024-06-28] MEDS: ZETIA 10 MG PO (21:02)
[2024-06-28] MEDS: TOPROL XL 25 MG PO (21:07)
[2024-06-28] MEDS: LIPITOR 10 MG PO (21:08)
[2024-06-28] MEDS: CARDURA 4 MG PO (21:11)
[2024-06-28 23:15] VITALS: BP 132/67
[2024-06-29] VITALS (7 sets, daily range): BP systolic 111–151; BP diastolic 64–80; PULSE 66–67; BMI 40.1
[2024-06-29 07:58] LABS: % Basophils 0.4 % (0-2); % Eosinophils 3.8 % (0-6); % Immature Granulocytes 0.8 % (0-0.5); % Monocytes 13.6 % (1.7-9.3); % Neutrophils 56.4 % (42.2-75.2); Absolute Eosinophils 0.3 10^3/uL (0-0.7); Absolute Immature Granulocytes 0.1 10^3/uL (0-0.05); Absolute Lymphocytes 2.3 10^3/uL (1.2-3.4); Absolute Monocytes 1.2 10^3/uL (0.1-0.6); Absolute Neutrophils 5.1 10^3/uL (1.4-6.5); Hemoglobin 13.1 g/dL (13.0-18.0); Mean Corp Hgb Conc. 32.8 g/dL (33.0-37.0); Mean Corpuscular Hgb 30.1 pg (27.0-31.0); Mean Platelet Volume 10.3 fL (7.4-10.4); Nucleated Red Blood Cells % 0 % (-); Platelet Count 209 10^3/uL (130-400); Red Blood Cell Count 4.35 10^6/uL (4.70-6.10); Red Cell Dist. Width 14.2 % (11.5-14.5)
[2024-06-29 08:25] LABS: Blood Urea Nitrogen 37 mg/dl (9-20); Calcium 9.2 mg/dl (8.4-10.2); Carbon Dioxide 28 mmol/L (22-30); Chloride 103 mmol/L (98-107); Estimated Creatinine Clearance 56 ml/min; Glucose 120 mg/dl (70-99); Magnesium 2.4 mg/dl (1.6-2.3); Potassium 4.1 mmol/L (3.5-5.1); Sodium 137 mmol/L (135-145); eGFR > 60.00
[2024-06-29] MEDS: VOLTAREN 100 MG PO (08:30)
[2024-06-29] MEDS: FARXIGA 10 MG PO (08:31)
[2024-06-29] MEDS: WELLBUTRIN SR (12 hour sustained release) 150 MG PO ×2 (08:31→21:17)
[2024-06-29] MEDS: XARELTO 10 MG PO (08:32)
[2024-06-29] MEDS: VITAMIN D3 (cholecalciferol) 25 MCG PO (08:33)
[2024-06-29] MEDS: COLACE 100 MG PO ×2 (08:33→21:16)
[2024-06-29] MEDS: ALDACTONE 25 MG PO (08:33)
[2024-06-29] MEDS: VITAMIN B-12 1000 MCG PO (08:33)
[2024-06-29] MEDS: LASIX 40 MG IV ×2 (08:34→15:37)
[2024-06-29] MEDS: STRIVERDI RESPIMAT 2 PUFF INH (08:41)
[2024-06-29] MEDS: SPIRIVA RESPIMAT 2.5 MCG 2 PUFF INH (08:41)
--- NOTE | 2024-06-29 12:00 | CM ---
CM reviewed chart, patient seen bedside, discussed switched to inpatient status- provided with IMM, verbally reviewed, placed in chart. Patient reports he will likely discharge tomorrow, will transport self home. CM will continue to follow for all
discharge planning needs.
Plan; home no needs likely.
--- NOTE | 2024-06-29 12:16 | W.PN.HOSP.TC ---
Today's Communication/Plan
-
Follow-up echo read
Continue IV Lasix
Trend I's and O's, weights, BMP
Uptitrate GDMT as needed
As needed IV hydralazine for hypertension
Assessment / Plan
Assessment / Plan
#Acute on chronic HFmrEF
-History of dilated NICM; last echo with LVEF 42%, no RV systolic dysfunction, normal diastology
-Unclear etiology for his heart failure; LHC negative in the past, no features of restrictive disease
-Home medications include GDMT with beta-sabiha, ACEi, MRA, SGLT2i; on Lasix 40 mg twice daily
-Reportedly was eating more salt recently, taking Lasix only 20 mg twice daily
-Question stress-induced response as well, states he lost his within the last few months
-Has responded well to diuretics, minimally hypervolemic on exam this morning
-Warm and wet phenotype, on room air
Plan
-Continue IV Lasix 40 mg twice daily through today
-Follow-up repeat echocardiogram to assess LV function and diastology
-Continue GDMT, uptitrate as hemodynamics allow
-Monitor BMP, I's and O's, daily weight
-Continue on telemetry
#Paroxysmal AF
-Home medications include beta-sabiha and Xarelto
-No known history of ablation or other EP interventions
-Heart rate has been mostly WNL here, appears regular
#JASEN on CPAP
-Wears CPAP nightly at 15 mmHg inspiratory pressure
-No known history of pulmonary hypertension
-Continue CPAP and follow-up echo
#HTN
-No known history of hypertensive systemic disease
-Home medications include GDMT for heart failure and diuretics
-Blood pressure here elevated, on IV diuretics
-Uptitrate GDMT as hemodynamics allow
#Dyslipidemia
-No ASCVD history, left heart cath fairly recently was negative for obstructions
-Home medications include ezetimibe and simvastatin combination pill
#H/O pulmonary embolism on Xarelto
-Unclear nature, whether provoked or not
-No known history of underlying hypercoagulability
-No signs of active VTE as of now
DVT prophylaxis: Home Xarelto
Diet: Cholesterol-lowering, 2 g sodium restricted
CODE STATUS: Full code
Anticipated Discharge: 24 - 48 hours
Subjective/Interval History
-
Date of Service: June 29, 2024
Seen and examined at the bedside. No acute events reported overnight. AFVSS this morning
Initially was complaining of constipation though had bowel movement without intervention. States his breathing is improved today
He denies any new complaints as of this morning. Asks if he can go home
Objective Data
-
Labs:
Laboratory Results
06/29/24
07:14
WBC 9.0
Hgb 13.1
Hct 40.0
Plt Count 209
Sodium 137
Potassium 4.1
Chloride 103
Carbon Dioxide 28
BUN 37 H
Creatinine 1.2
Glucose 120 H
Calcium 9.2
Vital Signs:
Vital Signs
Temp Pulse Resp BP Pulse Ox
97.5 F 74 20 111/65 96
06/29/24 11:10 06/29/24 11:10 06/29/24 11:10 06/29/24 11:10 06/29/24 11:10
I&O
06/28/24 06/29/24 06/30/24
06:59 06:59 06:59
Intake Total 480 / 480 720 / 720
Output Total 600 / 600 1850 / 1850
Balance -120 / -120 -1130 / -1130
Review of Systems
-
History Source: Patient
All other systems: Reviewed and negative
Physical Exam
-
General: Well Developed, No Apparent Distress, Comfortable and Morbidly Obese
HEENT: Normocephalic, Atraumatic, Moist Mucous Membranes and Anicteric
Respiratory: Clear to Auscultation and Non Labored Respirations; Negative Accessory Resp Muscle Use
Cardiac: Regular Rhythm and S1/S2; Negative Murmur, Rub, JVD or Gallop
GI: Soft, Nontender, Nondistended and Normal Bowel Sounds
Musculoskeletal: No Clubbing, No Cyanosis and No Edema
Skin: Warm, Dry and Normal Turgor; Negative Rash
Neuro: AO x 3 and Nonfocal/Grossly Intact
Psych: Calm
Data Reviewed
-
Labs: Labs Reviewed by me and Discussed with Physician (Sammying Machine Operator)
--- NOTE | 2024-06-29 13:35 | W.PN.CARDCBS ---
Addendum entered and electronically signed by Ladarius Serrano MD 06/29/24 13:47:
I saw and examined the patient.
The CHANNELER or PA's note was reviewed and I agree with the note.
Comment: General: Well developed, well nourished in NAD.
Neck: Supple, no JVD, HJR, carotids +2 B/L, no bruits bilaterally.
Heart: Non displaced PMI, RRR, no murmurs, No S3, S4, no rubs.
Lungs: Scattered rhonchi
Extremities: No clubbing, cyanosis or edema bilaterally.
Neuro: Grossly nonfocal, awake, alert and oriented x3.
Remains in CHF but is much improved. Continue IV Lasix another 24 hours and consider change to oral Lasix in a.m. Check echocardiogram. Discussed with primary service.
Original Note:
Today's Communication / Plan
-
continue IV lasix, likely transition to po in AM
awaiting echo report
Impression / Plan
-
Primary Chemical Recovery Operator: Dr. Pretty
Assessment:
Presentation with COOMBS x4 days
Acute on chronic HFmrEF
NICM, EF 40% by echo 02/2024
HTN
HLD
PVCs
History of DVT/PE 2021, on maintenance xarelto
DM2
JASEN
COPD
ECHO 03/13/2024: EF 42%, global hypokinesis, mild MR, trace TR, PAP 26 mmHg
Plan:
-Patient presents with progressive COOMBS for the last 4 days. proBNP 1350.
-responding to IV diuresis - with negative I&Os although weight stable overnight if accurate. continue IV lasix. would plan to transition to po lasix 40mg BID in AM (was supposed to be on this dose, but he thinks he has been taking 20mg BID at home)
-await results of follow up echo study to reeval EF, most recently 40% by echo 02/2024 as above
-continue toprol, lisinopril, farxiga, spironolactone
-CHF education
-OP cardiac follow up arranged
Progress Note - Chemical Recovery Operator
Subjective
Date of Service: June 29, 2024
breathing improving
Objective
Labs:
06/29/24 07:14
06/29/24 07:14
Labs
Hgb 13.1 g/dL (13.0-18.0) 06/29/24 07:14
Hct 40.0 % (39.0-52.0) 06/29/24 07:14
Plt Count 209 10^3/uL (130-400) 06/29/24 07:14
Sodium 137 mmol/L (135-145) 06/29/24 07:14
Potassium 4.1 mmol/L (3.5-5.1) 06/29/24 07:14
BUN 37 mg/dl (9-20) H 06/29/24 07:14
Creatinine 1.2 mg/dL (0.7-1.3) 06/29/24 07:14
Glucose 120 mg/dl (70-99) H 06/29/24 07:14
Troponins
06/27/24 06/27/24 06/28/24
11:20 21:16 02:05
Troponin I < 0.012 < 0.012 < 0.012
06/28/24
08:00
Troponin I < 0.012
Vital Signs and I&O:
Vital Signs
Temp Pulse Resp BP Pulse Ox
97.5 F 74 20 111/65 96
06/29/24 11:10 06/29/24 11:10 06/29/24 11:10 06/29/24 11:10 06/29/24 11:10
Vital Signs
Temp Pulse Resp BP Pulse Ox
97.5 F 74 20 111/65 96
06/29/24 11:10 06/29/24 11:10 06/29/24 11:10 06/29/24 11:10 06/29/24 11:10
Intake & Output
06/27/24 06/28/24 06/29/24 06/30/24
07:59 07:59 07:59 07:59
Intake Total 480 / 480 720 / 720
Output Total 600 / 600 1850 / 1850
Balance -120 / -120 -1130 / -1130
[2024-06-29] MEDS: LIPITOR 10 MG PO (21:17)
[2024-06-29] MEDS: ZETIA 10 MG PO (21:17)
[2024-06-29] MEDS: MAG-TAB SR 84 MG PO (21:17)
[2024-06-29] MEDS: CARDURA 4 MG PO (21:29)
[2024-06-29] MEDS: ZESTRIL 40 MG PO (21:30)
[2024-06-29] MEDS: TOPROL XL 25 MG PO (21:30)
[2024-06-30 03:41] VITALS: BP 138/70
[2024-06-30 06:00] VITALS: BMI 39.5
[2024-06-30 07:29] VITALS: BP 169/84
[2024-06-30] MEDS: STRIVERDI RESPIMAT 2 PUFF INH (07:44)
[2024-06-30] MEDS: SPIRIVA RESPIMAT 2.5 MCG 2 PUFF INH (07:44)
[2024-06-30] MEDS: XARELTO 10 MG PO (08:17)
[2024-06-30] MEDS: WELLBUTRIN SR (12 hour sustained release) 150 MG PO (08:17)
[2024-06-30] MEDS: VITAMIN B-12 1000 MCG PO (08:17)
[2024-06-30] MEDS: VITAMIN D3 (cholecalciferol) 25 MCG PO (08:17)
[2024-06-30] MEDS: COLACE 100 MG PO (08:17)
[2024-06-30] MEDS: VOLTAREN 100 MG PO (08:18)
[2024-06-30] MEDS: ALDACTONE 25 MG PO (08:18)
[2024-06-30] MEDS: LASIX 40 MG IV (08:19)
[2024-06-30] MEDS: FARXIGA 10 MG PO (08:19)
[2024-06-30 08:29] LABS: % Basophils 0.4 % (0-2); % Eosinophils 3.3 % (0-6); % Immature Granulocytes 0.7 % (0-0.5); % Lymphocytes 24.2 % (20.5-51.1); % Monocytes 13.8 % (1.7-9.3); % Neutrophils 57.6 % (42.2-75.2); Absolute Eosinophils 0.3 10^3/uL (0-0.7); Absolute Immature Granulocytes 0.1 10^3/uL (0-0.05); Absolute Monocytes 1.2 10^3/uL (0.1-0.6); Absolute Neutrophils 4.9 10^3/uL (1.4-6.5); Hematocrit 39.1 % (39.0-52.0); Hemoglobin 13.1 g/dL (13.0-18.0); Mean Corp Hgb Conc. 33.5 g/dL (33.0-37.0); Mean Corpuscular Volume 92.4 fL (80.0-94.0); Mean Platelet Volume 10.4 fL (7.4-10.4); Nucleated Red Blood Cells % 0 % (-); Platelet Count 203 10^3/uL (130-400); Red Blood Cell Count 4.23 10^6/uL (4.70-6.10); Red Cell Dist. Width 14.1 % (11.5-14.5); White Blood Cell Count 8.4 10^3/uL (4.8-10.8)
[2024-06-30 09:17] LABS: Blood Urea Nitrogen 39 mg/dl (9-20); Calcium 9.1 mg/dl (8.4-10.2); Carbon Dioxide 25 mmol/L (22-30); Chloride 99 mmol/L (98-107); Estimated Creatinine Clearance 48 ml/min; Glucose 118 mg/dl (70-99); Sodium 135 mmol/L (135-145); eGFR 50.81
[2024-06-30 09:29] VITALS: BP 96/61; PULSE 108; PULSE 74; O2SAT 99
[2024-06-30 09:46] VITALS: O2SAT 99
[2024-06-30 11:03] VITALS: BP 116/64
--- NOTE | 2024-06-30 11:04 | W.PN.HOSP.TC ---
Addendum entered and electronically signed by Ladarius Chapman, 06/30/24 15:54:
CDI: JARED secondary to IV diuresis, expect improvement with transition to oral agent
Addendum entered and electronically signed by Ladarius Chapman, 06/30/24 14:27:
>30 minutes were utilized for discharge planning and preparation as well as arranging outpatient follow-up and resources
Original Note:
Today's Communication/Plan
-
Likely discharge
Transition to oral diuretics
Continue current GDMT
OP cardiology follow-up
BMP in 1 week
Assessment / Plan
Assessment / Plan
#Acute on chronic HFmrEF
-History of dilated NICM; last echo with LVEF 42%, no RV systolic dysfunction, normal diastology
-Unclear etiology for his heart failure; LHC negative in the past, no features of restrictive disease
-Home medications include GDMT with beta-sabiha, ACEi, MRA, SGLT2i; on Lasix 40 mg twice daily
-Reportedly was eating more salt recently, taking Lasix only 20 mg twice daily
-Echocardiogram here with LVEF 42% and largely unchanged from last study
-Has responded well to diuretics, euvolemic as of this morning
-Warm and wet phenotype, on room air; creatinine bumped today
-Transition to oral Lasix 40 mg twice daily, BMP in 1 week as OP
-Continue GDMT at current doses
#Paroxysmal AF
-Home medications include beta-sabiha and Xarelto
-No known history of ablation or other EP interventions
-Heart rate has been mostly WNL here, appears regular
#JASEN on CPAP
-Wears CPAP nightly at 15 mmHg inspiratory pressure
-No known history of pulmonary hypertension
-Continue CPAP
#HTN
-No known history of hypertensive systemic disease
-Home medications include GDMT for heart failure and diuretics
-Blood pressure here elevated, on IV diuretics
-Uptitrate GDMT as hemodynamics allow
#Dyslipidemia
-No ASCVD history, left heart cath fairly recently was negative for obstructions
-Home medications include ezetimibe and simvastatin combination pill
#H/O pulmonary embolism on Xarelto
-Unclear nature, whether provoked or not
-No known history of underlying hypercoagulability
-No signs of active VTE as of now
DVT prophylaxis: Home Xarelto
Diet: Cholesterol-lowering, 2 g sodium restricted
CODE STATUS: Full code
Anticipated Discharge: Today
Subjective/Interval History
-
Date of Service: June 30, 2024
Seen and examined while seated in the chair. No acute events reported overnight. AFVSS on room air today.
Echocardiogram was read with LVEF 42%, unchanged from last study. Patient states he is continuing to improve
Denies any new complaints as of this morning
Objective Data
-
Labs:
Laboratory Results
06/30/24
07:00
WBC 8.4
Hgb 13.1
Hct 39.1
Plt Count 203
Sodium 135
Potassium 4.0
Chloride 99
Carbon Dioxide 25
BUN 39 H
Creatinine 1.4 H
Glucose 118 H
Calcium 9.1
Vital Signs:
Vital Signs
Temp Pulse Resp BP Pulse Ox
98.3 F 76 20 116/64 96
06/30/24 11:03 06/30/24 11:03 06/30/24 11:03 06/30/24 11:03 06/30/24 11:03
I&O
06/29/24 06/30/24 07/01/24
06:59 06:59 06:59
Intake Total 720 / 720 720 / 720
Output Total 1850 / 1850 1825 / 1825
Balance -1130 / -1130 -1105 / -1105
Review of Systems
-
History Source: Patient
All other systems: Reviewed and negative
Physical Exam
-
General: Well Developed, No Apparent Distress, Comfortable and Morbidly Obese
HEENT: Normocephalic, Atraumatic and Moist Mucous Membranes
Respiratory: Clear to Auscultation and Non Labored Respirations
Cardiac: Regular Rhythm and S1/S2; Negative Murmur, Rub, JVD or Gallop
GI: Soft, Nontender, Nondistended and Normal Bowel Sounds
Musculoskeletal: No Clubbing, No Cyanosis and No Edema
Skin: Warm, Dry and Normal Turgor; Negative Rash
Neuro: AO x 3 and Nonfocal/Grossly Intact
Psych: Calm
--- NOTE | 2024-06-30 11:42 | W.PN.CARDCBS ---
Addendum entered and electronically signed by Chano Kulkarni MD 06/30/24 16:17:
I saw and examined the patient.
The Retail Analytics Manager's note was reviewed and I agree with the note.
Comment: Briefly, 79-year-old man past medical history of heart failure with reduced ejection fraction presenting with worsening dyspnea found to be in acute decompensated heart failure
With IV diuresis he appears euvolemic today on exam
Will transition to p.o. Lasix 40 mg twice daily and continue on discharge
Resume GDMT�Toprol, lisinopril, Farxiga, spironolactone
Stable for discharge from my perspective
Outpatient cardiology follow-up has been arranged
Original Note:
Today's Communication / Plan
-
po lasix 40mg BID
BMP/mag in 1 week
continue OP toprol, lisinopril, farxiga, spironolactone
for DC today
Impression / Plan
-
Primary Database Specialist: Dr. Pretty
Assessment:
Presentation with COOMBS x4 days
Acute on chronic HFmrEF
NICM, EF 40% by echo 02/2024
HTN
HLD
PVCs
History of DVT/PE 2021, on maintenance xarelto
DM2
JASEN
COPD
ECHO 03/13/2024: EF 42%, global hypokinesis, mild MR, trace TR, PAP 26 mmHg
ECHO 06/28/24: EF 42%, global hypokinesis, stage 1 diastolic dysfunction, no significant change compared to prior
Plan:
-Patient presents with progressive COOMBS for the last 4 days. proBNP 1350.
-weight down 4 pounds overnight if accurate. Cr up to 1.4. will transition to po lasix 40mg BID for DC, to start 2/8 AM
-echo with stable EF
-continue toprol, lisinopril, farxiga, spironolactone
-in SR with PVCs at times in pattern of bigeminy, 1 6-beat run of NSVT. K/mag stable
-CHF education - reviewed fluid/salt restrictions and daily weights with patient today
-OP cardiac follow up arranged. ok for DC to home today
Progress Note - Database Specialist
Subjective
Date of Service: June 30, 2024
no CP. reports improvement in breathing
Objective
Labs:
06/30/24 07:00
06/30/24 07:00
Labs
Hgb 13.1 g/dL (13.0-18.0) 06/30/24 07:00
Hct 39.1 % (39.0-52.0) 06/30/24 07:00
Plt Count 203 10^3/uL (130-400) 06/30/24 07:00
Sodium 135 mmol/L (135-145) 06/30/24 07:00
Potassium 4.0 mmol/L (3.5-5.1) 06/30/24 07:00
BUN 39 mg/dl (9-20) H 06/30/24 07:00
Creatinine 1.4 mg/dL (0.7-1.3) H 06/30/24 07:00
Glucose 118 mg/dl (70-99) H 06/30/24 07:00
Troponins
06/27/24 06/27/24 06/28/24
11:20 21:16 02:05
Troponin I < 0.012 < 0.012 < 0.012
06/28/24
08:00
Troponin I < 0.012
Vital Signs and I&O:
Vital Signs
Temp Pulse Resp BP Pulse Ox
98.3 F 76 20 116/64 96
06/30/24 11:03 06/30/24 11:03 06/30/24 11:03 06/30/24 11:03 06/30/24 11:03
Vital Signs
Temp Pulse Resp BP Pulse Ox
98.3 F 76 20 116/64 96
06/30/24 11:03 06/30/24 11:03 06/30/24 11:03 06/30/24 11:03 06/30/24 11:03
Intake & Output
06/28/24 06/29/24 06/30/24 07/01/24
07:59 07:59 07:59 07:59
Intake Total 480 / 480 720 / 720 720 / 720
Output Total 600 / 600 1850 / 1850 1825 / 1825
Balance -120 / -120 -1130 / -1130 -1105 / -1105
Physical Exam
Physical Exam
GEN: No distress, awake, alert, oriented x3. sitting in chair. obese
HEENT: supple, anicteric, mmm, eomi
LUNGS: CTA B/L, no wheezes/rales
CV: Reg, S1/S2, no murmur
ABD: soft, BS+, NT/ND
EXT: No cyanosis, clubbing, edema
NEURO: Gross non-focal
SKIN: Warm, pink, dry. No rash
[2024-06-30 12:45] VITALS: BP 116/64
--- NOTE | 2024-06-30 14:20 | W.DCSUMMARY ---
Discharge Summary
Discharge Data
Date of Admission: 06/28/24
Date of Discharge: 06/30/24
-
Pending Results: No
Hospital Course
Discharging Physician : Ladarius Chapman DO
Disposition : Home
Principal Discharge diagnosis : Decompensated HFmrEF, possible incorrect OP Lasix dosing
Chronic Discharge diagnosis : Nonischemic cardiomyopathy, AF on Xarelto, JASEN on CPAP (15 mm IPAP), HLD, HTN, H/O PE.
Hospital Course : 79-year-old male with nonischemic cardiomyopathy and mildly reduced EF of 42%, AF on Xarelto, JASEN on CPAP, HLD, HTN, history of PE that presented to the hospital with shortness of breath that was significantly worse with exertion.
Upon arrival had evidence of hypervolemia with elevated BNP, bibasilar crackles, exertional hypoxemia with normal resting saturations. Was started on IV Lasix 40 mg twice daily. Had a repeat echocardiogram during the hospitalization that showed no
major changes from previous echo. LVEF remains mildly reduced at 42%. Was continued on his current GDMT course with beta-sabiha, RAFAL inhibitor, MRA, SGLT2 inhibitor. Monitor his daily weights and I's and O's, had adequate diuresis during his
hospitalization. Was transition to Lasix 40 mg twice daily PO at time of discharge. Provided prescription for BMP 1 week after discharge with results sent to family doctor and architecture department chair.
Important imaging findings : TTE 06/28/2024
CONCLUSIONS: Mildly dilated left ventricular chamber size. Normal left ventricular wall thickness. Mildly reduced left ventricular systolic function. Left ventricular ejection fraction is 42% by Parish's method of discs. Global hypokinesis. Stage I
diastolic dysfunction suggestive of abnormal relaxation. Since echo 02/2024 which was reviewed, there is no significant change. LV is mildly dilated.
Procedures: No procedures performed
Follow-up: Cardiology, family physician
Discharge Plan
-
Patient Disposition: Home (Routine Discharge)
Discharge Diagnosis/Procedures: Decompensated heart failure
Condition: Good
Diet: Low Fat, No added salt and Restrict fluids to 64 oz
Activity: As tolerated
Driving Restrictions: As prior to admission
Blood Work: BMP and magnesium lvl in 1 week after discharge from hospital
Specialty Instructions: Weigh Daily- Call MD for wt gain/loss 3 lbs overnight/5 lbs in 1 week
Activity Restrictions/Additional Instructions:
Schedule follow-up appointment with your family doctor, should be seen in office within 1 to 2 weeks of discharge from the hospital
Follow-up with cardiology in office on 07/05/2024 at 9:40 AM
Instructions: *[facility] Heart Failure Instructions
Referrals:
Mary Lou Herrera PA-C [Specified Professional Personl] - 07/05/24 9:40 am (You have a cardiology follow up appointment at the [place] office with Dr. Pretty's physician visual merchandising assistant, Mary Lou. Please call with questions. )
Gigi Donahue MD [Family Provider] -
Additional Discharge Medication Instructions: Hold PM lasix today, start po lasix 40mg twice daily AM of 07/01/24.
Prescriptions:
Continued
bupropion HCl 150 MG tablet sustained-release 12 hr
150 mg PO BID
docusate sodium 100 MG capsule
100 mg PO BID
doxazosin 4 MG tablet
4 mg PO HS
metoprolol succinate 25 MG tablet extended release 24 hr
25 mg PO HS
multivitamin with folic acid [Tab-A-Artie] 1 TABLET tablet
1 tab PO DAILY
vitamin E (dl, acetate) 400 UNITS capsule
400 units PO DAILY
cyanocobalamin (vitamin B-12) [Vitamin B-12] 1,000 mcg Tablet
1,000 mcg PO DAILY
lisinopril 40 mg tablet
40 mg PO HS
ezetimibe-simvastatin 10-10 mg tablet
1 tab PO HS
magnesium oxide 500 mg Capsule
250 mg PO HS
omega 8-oss-eaq-fish oil [Fish Oil] 1,000 mg (120 mg-180 mg) Capsule
1 cap PO BID
Xarelto 10 mg tablet
10 mg PO DAILY
diclofenac sodium 100 mg Tablet Extended Release 24 Hr
100 mg PO DAILY
Anoro Ellipta 62.5-25 mcg/actuation Blister With Device
1 inh INHALATION R DAILY
dapagliflozin propanediol [Farxiga] 10 mg tablet
10 mg PO DAILY Qty: 90 3RF
spironolactone 25 mg tablet
25 mg PO DAILY Qty: 90 3RF
azelastine 137 mcg (0.1 %) [place],Non-Aerosol
1 spray INTRANASAL BIDPRN PRN (Reason: congestion)
cholecalciferol (vitamin D3) 25 mcg (1,000 unit) Tablet
25 mcg PO DAILY
Glucosamine Chondroitin 550-30-1 mg Capsule
1 cap PO BID
furosemide [Lasix] 40 mg tablet
40 mg PO BID 30 Days Qty: 60 0RF
Discharge Orders:
Discharge Patient (As Directed); Ordered 06/30/24
Ordered By: Ladarius Chapman
Discharge Date and Time
Print Language: IVORIAN
--- NOTE | 2024-06-30 15:33 | PN.CDI ---
CDI
- -
CDI:
Physician Documentation Request
Admit Date: 06/28/24 18:40
Dear Doctor Ari,
Clinical Indicators:
Patient admitted with acute on chronic HFmrEF.
2/ Lasix 40 mg IV BID given.
2/ PN, 'creatinine bumped today'
Cr/GFR trend:
06/28/24 06/30/24
04:17 07:00
Creatinine 1.0 1.4 H
eGFR > 60.00 50.81
Clarify which of the following accurately represents the patient's renal status:
JARED -see criteria
Rise in creatinine only
Other
Criteria for JARED*
1 Increase in serum creatinine by > or = to 0.3 mg/dL (> or = to 26.5 micromol/L) within 48 hours, OR
2 Increase in serum creatinine to > or = to 1.5 times baseline, which is known or presumed to have occurred within 7 days, OR
3 Urine volume < 0.5 mL/kg/hour for six hours
Use of terms such as suspected, likely, concern for, or probable (associated with a specific diagnosis that is being evaluated, monitored, or treated as if it exists) are acceptable and can be coded in the inpatient setting, when documented at the
time of discharge.
Thank you,
Lana Luke RN BSN
CDI Specialist
available via tiger text
Please use your independent medical judgment in providing your response.
*Source: Kidney Disease: Improving Global Outcomes (KDIGO) 2012
--- NOTE | 2024-07-03 11:32 | W.HF.CON ---
Heart Failure
- LV Function
Left ventricular function study result: LV Ejection fraction 41-49%
Ejection Fraction Percentage: 42
- ARNI
Patient already on ARNI: No
Heart Failure ARNI Not Indicated: LV Ejection Fraction >/= 40%
- ACEI/ARB
Patient already on ACEI/ARB: Yes
- Beta Agustín
Patient already on Evidence Based Beta Agustín: Yes
- Mineralocorticord Receptor Antagonist
Patient already on MRA: Yes
- SGLT-2 Inhibitor
Patient already on SGLT-2 Inhibitor: Yes
- Afib Anticoagulation
Patient already on Anticoagulation for Afib: Yes
- NYHA CHF Classification
NYHA CHF Classification Level: Class III - Symptoms w/ min exertion, interferes w/ nml daily activity
- ACC/AHA Stage
ACC/AHA Stage: Stage C: Symptomatic Heart Failure
== END 2024-06-30 15:19 | disposition home or self-care (01) | DRG 291 ==
LOC: 4 WEST ACU 18:40
PROVIDERS: Physician Assistant; ADMITTING PHYSICIAN Internal Medicine; ATTENDING PHYSICIAN Internal Medicine; EMERGENCY PHYSICIAN Student in an Organized Health Care Education/Training Program; FAMILY PHYSICIAN Family Medicine; OTHER PHYSICIAN Internal Medicine Cardiovascular Disease
DX: I11.0 Hypertensive heart disease with heart failure (principal); I50.23 Acute on chronic systolic (congestive) heart failure; N17.9 Acute kidney failure, unspecified; I42.8 Other cardiomyopathies; G47.33 Obstructive sleep apnea (adult) (pediatric); Z87.891 Personal history of nicotine dependence; J44.9 Chronic obstructive pulmonary disease, unspecified; E11.9 Type 2 diabetes mellitus without complications; E78.00 Pure hypercholesterolemia, unspecified; Z86.711 Personal history of pulmonary embolism; E66.9 Obesity, unspecified; Z68.39 Body mass index [BMI] 39.0-39.9, adult; I44.0 Atrioventricular block, first degree; I48.91 Unspecified atrial fibrillation; I49.3 Ventricular premature depolarization; Z11.52 Encounter for screening for COVID-19; Z79.01 Long term (current) use of anticoagulants; Z86.718 Personal history of other venous thrombosis and embolism; Z60.2 Problems related to living alone
CPT/HCPCS: 93308; 71046; 80048; 80053; 80061; 83735; 83880; 84443; 84484; 85025; 85027; 85379; 87502; 87811; 93005; 93321; 93325; 94640; 94660; 96374; 97162; 97166; 99285

== ENCOUNTER → 2024-11-20 11:13 | Outpatient (REF) | payer MEDICARE, OTHER, SELFPAY | LOC: RAD 11:13 | PROVIDERS: ATTENDING PHYSICIAN Student in an Organized Health Care Education/Training Program | DX: M79.604 Pain in right leg (principal) | CPT/HCPCS: 73590; 93971 ==

== ENCOUNTER → 2025-01-01 07:45 | Outpatient (REF) | payer MEDICARE, OTHER, SELFPAY | LOC: RAD 07:45 | PROVIDERS: ATTENDING PHYSICIAN Internal Medicine Critical Care Medicine; FAMILY PHYSICIAN Family Medicine | DX: Z87.891 Personal history of nicotine dependence (principal); R91.8 Other nonspecific abnormal finding of lung field; R59.0 Localized enlarged lymph nodes | CPT/HCPCS: 71260; Q9967 ==

== ENCOUNTER → 2025-01-29 12:53 | Outpatient (REF) | payer MEDICARE, OTHER, SELFPAY ==
--- NOTE | 2024-12-11 13:45 | PN.DIAED02 ---
Referral
DSME Class Series Code: [id number]
Referred For: Diabetes Self-Management Training, Medical Nutrition Therapy, Self-Blood Glucose Monitoring, Long-Term Complication Instruction, Accute Complication Instruction, Continuous Glucose Monitoring, Medication management, Care Coordination,
Disease Management
PHI Release Authorization Form Signed: Yes
Patient Problems:
Current Active Problems
Problem Status Onset
Type 2 diabetes mellitus with hyperglycemia Chronic ~11/21/24
Demographic
(1) Type 2 diabetes mellitus with hyperglycemia
Status: Chronic Onset Date: ~11/21/24 Code(s): E11.65 - Type 2 diabetes mellitus with hyperglycemia
Patient's primary language-: Japanese
Education: Advanced college degree
Occupation: Retired
Hours Worked/Week: < 20
- Social
Primary Support Person: Self
Primary Care Takers: Self
Living Arrangements: Self
- Learning Methods
Preferred Method: Lecture/audio, Hands-on demonstration
Barriers to Learning: None
Glycemic Control
- Blood Glucose Monitoring Assessment
Date: 12/11/24 (2 hour PP today 99)
Blood glucose monitoring at home: No
- Hyperglycemia Assessment
Experiences Hyperglycemia: No
- Hypoglycemia Assessment
Patient carries glucose source: No
Patient experiences hypoglycemia: No
Patient has required treatment by others: No
History of Hypoglycemia Unawareness: No
- Hemoglobin A1c
Date: 11/21/24
A1C Percentage (%): 6.6
Medical History of Diabetes
Family Diabetes History: Sibling (sister)
Previous Diabetes Education: Yes
How long ago?: > 10 years ago (thinks he had a different insurance, not Medicare)
Previous visit with Dietitian: No
Complications/Comorbidity/Specialist: Gastrointestinal disease (PANTOPRAZOLE SODIUM 40 MG DEL RLS QD), Heart Disease (CHF:FUROSEMIDE 40 MG QD, SPIRONOLACTONE 25 MG QD,XARELTO 10 MG QD, DAPAGLIFLOZIN 10 MG QD), Hypertension (Felodipine ER 5 mg QD,
Lisinopril 40 mg QD, Metoprolol Succinate ER 25 mg 2/day, Doxazosin Mesylate 4 MG QD), Hyperlipidemia (Ezetimibe-Simvastatin 10-10 mg QD, FIsh Oil 1200 mg BID), Metabolic (T2D: Mounjaro 2.5 mg once/week), Pulmonary disease (COPD: ANORO ELLIPTA
62.5-25 MCG/ACT QD; ALLERGIES: AZELASTINE HCL 0.1% SOLUTION BID), Other / symptoms (DEPRESSION: BUPROPION HCL ER 2000 MG BID,)
Measures
- Anthropometrics
Height: 5 ft 5 in
Actual Weight: 247 lb
- Blood Pressure / Pulse
Blood pressure: 126/67
Pulse: 65
- Diabetes Management
Medical Management for Diabetes: Complete physical exam (12/04/2024), Dilated eye exam (01/2024), Other (FLU VAX: 02/11/2024 COVID VAX: 02/26/2021, 07/11/2020, 06/20/2023, 08/25/2021)
Self-Care
- Tobacco Usage
Do you now, or have you ever smoked?: Quit more than 1 year ago (smoking cessation 28 years ago)
- Alcohol & Drugs Usage
Drinks Alcohol: No
- Meals & Dining
Meals & Dining: Patient skips meals: No, Food Intolerance / Allergy: No, Cultural / Yarsani Dietary Needs: No
Primary Food Second Cutter: Self
Primary Wedding Cake Designer: Self
- Physical Activity
Physical Limitation: Yes (2/2 CHF)
Patient participates in physical Activity: No
Activity Types: Aerobics, Strength training
Frequency: < 1 per week
- Self Foot-Care
Foot Problems: None
- Patient-Self Assessment
Diabetes Knowledge: Poor
Feelings About Diabetes: Acceptance, Sadness / Depression
General Health: Fair
Importance of Health: Extremely
Stress Level: Medium
Diabetes Interferes With:: Nothing
Barriers to Diabetes Management: Lack of knowledge (NEW DX)
Depression Survey Score: 10
- Diabetes Identification
Carries Diabetes Identification: No
Diabetes Identification Information Provided: Yes
Care Plan
- Education Needs
Patient Education Needs: Diabetes disease process, Chronic complications, Acute complications, Medication, Monitoring, Physical activity, Psychosocial Adjustment, Nutritional management, Goal setting & problem solving
Recommended Diabetes Training Program based on assessment: Outpatient Diabetes Education Program
- Plan of Care
Plan of Care:
12/11/2024 DSME INITIAL ASSESSMENT
Met with participant today for registration and initiation of Diabetes Self-management. Pt was recommended by his PCP due to new diagnosis HbA1c of 6.6% on 11/21/2024. States he was pre diabetic in the past. He was prescribed Mounjaro 2.5 mg once
weekly for DM and also weight loss. He is a member of [employer]. He is also taking Farxiga but states this is for CHF.
His supplements are: Centrum Silver QD, Colace 100 mg BID, Glucosamine Chondroitin Complex 1500 mg BID, Mg 250 mg QD, Meloxicam 7.5 mg QD, Adult multivitamin QD, Vitamin B12 1000 mcg QD, Vitamin D3 25 mcg QD, Vitamin E 400 units QD, Vitamin E 268
mcg QD.
He does not monitor his glucose, but has checked in the past. I provided sample of Contour Next glucose meter and supplies. Demonstrated how to monitor glucose and recommended he check once a day in the AM and alternate 2 hours after meals and
review with provider. He will contact insurance for preferred brand and call us with this information to facilitate placing an order for supplies.
We reviewed the complications of diabetes, hypoglycemia protocol, A1c and daily glucose goals (fasting and 2 hours post prandial). He states he has a 48 oz/day fluid restriction and does not go over 2000 mg/sodium per day. He tracks calories daily,
states that since starting Mounjaro last week his appetite has diminished and for several days only ate 800 calories. I recommend he discuss with his provider, as 1200 calories/day recommended as a minimum. We discussed the benefits of exercise in
lowering glucose. He does not exercise, states in the past prior to Rx for diuretics had difficulty with exercise but is now just feeling 'lazy'. He plans to join an exercise program at his [facility] in December.
He states he took an education class 15 years ago, unsure if he had Medicare or a commercial insurance. I provided education that SEUN is covered once in a lifetime with Medicare. Provided him with CPT, he plans to call his insurance company to
discover cost and coverage. He requested self pay cost of class, I provided cost of $150 per class. He has our office phone #, will call with any questions or concerns.
--- NOTE | 2024-12-11 14:31 | PN.DIAED04 ---
Education Record
- Education Record
Class Attended: Other (DSME INITAL MEETING)
DSME Class Series Code: [id number]
Instructor: Registered Nurse (Arelis Mariano RN)
Pre-Program Knowledge: No knowledge
Pre-Test Score (%): 53
Goals
- Goal 1
Being Active: Exercise 30 minutes-5 times per week
Goals To Be Evaluated: Exercise 30 mins-5x/week
- Goal 2
Healthy Eating: Make better food choices
Goals To Be Evaluated: Make better food choices
- Goal 3
Monitoring: Follow monitoring schedule (SUGGESTED ONCE DAILY, ALTERNATE FASTING AND 2 HOURS POST PRANDIAL DIFFERING MEALS)
Goals To Be Evaluated: Follow monitoring times
--- NOTE | 2025-01-31 13:34 | PN.DIAED14 ---
This is to notify you that your patient with diabetes, SLICK ROYAL ( 1945), has enrolled in our diabetes self-management classes that are being held at [facility].
These classes will include an introduction to diabetes, diet, medication, exercise and prevention of complications. At the end of our class series, you will receive a report of your patient's participation and progress for your records.
Please contact me at the Diabetes Center, , if there is any particular information regarding your patient that might be helpful to me.
Sincerely,
Peyman MACIEL-RONNIE, [facility]
--- NOTE | 2025-01-31 13:34 | PN.DIAED04 ---
Education Record
- Education Record
Class Attended: Class 1
DSME Class Series Code: [id number]
Instructor: Registered Nurse (Arelis Mariano RN)
Class Curriculum:
Outpatient Diabetes Education Program:
Class 1 (120 minutes)
Describe the diabetes disease process and treatment options
Diabetes management
Develop personal strategies to promote health and behavior change
Integrate psychosocial adjustment for daily living
Monitor blood glucose and other parameters. Interpret and use the results for self-management decision making
Prevent, detect, and treat acute complications
Class Length (mins): 120
Post-Class 1 Test Score (%): 75
== END ==
LOC: DES 12:53
PROVIDERS: ATTENDING PHYSICIAN Family Medicine
DX: E11.9 Type 2 diabetes mellitus without complications (principal)
CPT/HCPCS: 99078

== ENCOUNTER → 2025-02-05 09:55 | Outpatient (REF) | payer MEDICARE, OTHER, SELFPAY ==
--- NOTE | 2025-02-06 10:10 | PN.DIAED04 ---
Education Record
- Education Record
Class Attended: Class 2
DSME Class Series Code: [id number]
Instructor: Registered Dietitian (Jaki Maguire, RD, LDN, CDE)
Class Curriculum:
Outpatient Diabetes Education Program:
Class 2 (120 minutes)
Incorporate nutritional management into lifestyle
Understanding nutritional value
Understanding carbohydrate counting
Class Length (mins): 120
== END ==
LOC: DES 09:55
PROVIDERS: ATTENDING PHYSICIAN Family Medicine
DX: E11.9 Type 2 diabetes mellitus without complications (principal)
CPT/HCPCS: 99078

== ENCOUNTER → 2025-02-19 09:24 | Outpatient (REF) | payer MEDICARE, OTHER, SELFPAY ==
--- NOTE | 2025-02-21 11:55 | PN.DIAED04 ---
Education Record
- Education Record
Class Attended: Class 4
DSME Class Series Code: [id number]
Instructor: Nurse Practitioner (JANELL Taylor)
Class Curriculum:
Outpatient Diabetes Education Program:
Class 4 (120 minutes)
Develop personal strategies to promote health and behavior change
Incorporate physical activity into lifestyle
Utilize medications safety for maximum therapeutic effectiveness
Understand different medication/insulin mechanism of action
Preparing for travel
Class Length (mins): 120
Post-Class 4 Test Score (%): 87
== END ==
LOC: DES 09:24
PROVIDERS: ATTENDING PHYSICIAN Family Medicine
DX: E11.9 Type 2 diabetes mellitus without complications (principal)
CPT/HCPCS: 99078

== ENCOUNTER → 2025-02-26 09:26 | Outpatient (REF) | payer MEDICARE, OTHER, SELFPAY ==
--- NOTE | 2025-02-28 13:12 | PN.DIAED04 ---
Education Record
- Education Record
Class Attended: Class 5
DSME Class Series Code: [id number]
Instructor: Registered Nurse (Arelis Mariano RN)
Class Curriculum:
Outpatient Diabetes Education Program:
Class 5 (120 minutes)
Prevent, detect, and treat acute complications
Prevent, detect, and treat chronic complications through risk reduction
Develop personal strategies to address psychosocial issues and concerns
Development of diabetes self-management support plan
Letter to physician with DSMS plan attached sent
Class Length (mins): 120
Post-Program Knowledge: Demonstrates competency
Post-Test Score (%): 77
Post-Program Assessment
- Post-Program Assessment
Actual Weight: 229 lb 6.4 oz
Blood pressure: 130/78
Post-Program Depression Survey Score: 1
Reviewing Previous Goals?: Yes
Pre-Program Depression Survey Score: 10
- Goals 1 Evaluation
Goals To Be Evaluated: Exercise 30 mins-5x/week
- Goals 2 Evaluation
Goals To Be Evaluated: Make better food choices
- Goals 3 Evaluation
Goals To Be Evaluated: Follow monitoring times
--- NOTE | 2025-02-28 13:39 | PN.DIAED20 ---
This is to notify you that your patient with diabetes, SLICK ROYAL ( 1945), has attended the following Diabetes Self-Management Education Classes.
__ Class 1 (120 minutes): Diabetes Overview - monitoring, stress/psychosocial adjustment, support, goal setting
__ Class 2 (120 minutes): Meal Planning - serving sizes, menu plans
_Missed_ Class 3 (120 minutes): Introduction to Carbohydrate Counting, Analyzing Food Labels
__ Class 4 (120 minutes): Medication, Exercise and Activity
__ Class 5 (120 minutes): Sick Day Management, Strategies to Reduce Complications, Problem Solving, Resources
The following behavioral goals were identified:
Exercise 30 mins-5x/week
Make better food choices
Follow monitoring times
A follow-up call will be made within three to six months to evaluate attainment of these goals and to check post-program Hemoglobin A1c and overall progress. All class participants are encouraged to contact me if I can be any further assistance in
learning how to manage their diabetes.
Sincerely,
Peyman MACIEL-RONNIE, [facility]
== END ==
LOC: DES 09:26
PROVIDERS: ATTENDING PHYSICIAN Family Medicine
DX: E11.9 Type 2 diabetes mellitus without complications (principal)
CPT/HCPCS: 99078

== ENCOUNTER → 2025-03-19 13:09 | Outpatient (REF) | payer MEDICARE, OTHER, SELFPAY ==
--- NOTE | 2025-03-20 13:35 | PN.DIAED04 ---
Education Record
- Education Record
Class Attended: Class 3
DSME Class Series Code: [id number]
Instructor: Registered Dietitian (Jaki Maguire, RD, LDN, CDE)
Class Curriculum:
Outpatient Diabetes Education Program:
Class 3 (120 minutes)
Incorporate nutritional management into lifestyle
Class Length (mins): 120
Post-Class 2 & 3 Test Score (%): 100
--- NOTE | 2025-03-20 13:37 | PN.DIAED16 ---
This is to notify you that your patient with diabetes, SLICK ROYAL ( 1945), has attended the entire series of Diabetes Self-Management Education Classes.
Class 1 (120 minutes): Diabetes Overview - monitoring, stress/psychosocial adjustment, support, goal setting
Class 2 (120 minutes): Meal Planning - serving sizes, menu plans
Class 3 (120 minutes): Introduction to Carbohydrate Counting, Analyzing Food Labels
Class 4 (120 minutes): Medication, Exercise and Activity
Class 5 (120 minutes): Sick Day Management, Strategies to Reduce Complications, Problem Solving, Resources
The following behavioral goals were identified:
Goal #1: Exercise 30 mins-5x/week
Goal #2: Make better food choices
Goal #3: Follow monitoring times
A follow-up call will be made within three to six months to evaluate attainment of these goals and to check post-program Hemoglobin A1c and overall progress. All class participants are encouraged to contact me if I can be any further assistance in
learning how to manage their diabetes.
Sincerely,
Peyman MACIEL-,[facility]
== END ==
LOC: DES 13:09
PROVIDERS: ATTENDING PHYSICIAN Family Medicine
DX: E11.9 Type 2 diabetes mellitus without complications (principal)
CPT/HCPCS: 99078